=== PATIENT | female | born 1930 | race Caucasian/White ===

== ENCOUNTER 2019-01-30 19:16 | Emergency (ER) | payer MEDICARE, OTHER ==
[~2019-01-30 19:16] MED LIST: ISOVUE-370 76%-LOCM 1 ML ONE
[2019-01-30] MEDS ORDERED: Diltiazem 125 MG/25 ML ONE (19:29)
[2019-01-30 20:10] LABS: #Lymphocytes 0.8 thou/uL (1.20-3.40); #Monocytes 0.6 thou/uL (0.11-0.59); #Neutrophils 5.7 thou/uL (1.40-6.50); %Basophils 0.1 % (0.0-1.0); %Eosinophils 0.6 % (0.0-10.0); %Lymphocytes 10.9 % (21.0-51.0); %Monocytes 8.2 % (0.0-10.0); %Neutrophils 80.1 % (42.0-75.0); Hemoglobin 11.6 g/dL (12.0-16.0); Mean Corpuscular HGB CONC 33.2 g/dL (32.0-36.0); Mean Corpuscular Hemoglobin 30.3 pg (27.0-31.0); Mean Platelet Volume 7.7 fL (7.4-10.4); Platelet Count 158 thou/uL (130-400); RBC Distribution Width 14.2 % (11.5-14.5); Red Blood Cell (RBC) Count 3.83 mill/uL (4.20-5.40); White Blood Cell (WBC) Count 7.1 thou/uL (4.8-10.8)
--- NOTE | 2019-01-30 20:23 | RAD ---
XR Chest 1 View Portable HISTORY: Difficulty breathing COMPARISON: None. FINDINGS: Heart size appears slightly enlarged with atherosclerotic changes of the aorta. Chronic altagracia earing lung changes are seen without focal infiltrate. Old left rib fractures are noted. The bones are demineralized. Arthritic changes of the right shoulder. IMPRESSION: No active intrathoracic disease.
[2019-01-30 20:33] LABS: ALT (SGPT) 21 U/L (8-55); AST (SGOT) 20 U/L (5-34); Albumin 3.4 g/dL (3.4-4.8); Alkaline Phosphatase 67 U/L (40-110); Anion Gap 16 mmol/L (10-20); BUN (Urea Nitrogen) 15 mg/dL (9.8-20.1); Bilirubin, Total 0.8 mg/dL (0.2-1.2); Calc. Creatinine Clearance 0 mL/min (70-130); Calcium 8.8 mg/dL (7.8-10.44); Carbon Dioxide 22 mmol/L (23-31); Chloride 92 mmol/L (98-107); Estimated GFR-MDRD 42; Glucose 125 mg/dL (83-110); Potassium 4.1 mmol/L (3.5-5.1); Protein, Total 6.4 g/dL (6.0-8.3); Sodium 126 mmol/L (136-145)
[2019-01-30 20:53] LABS: CKMB 1.9 ng/mL (0-6.6)
[2019-01-30] MEDS ORDERED: Furosemide 20 MG/2 ML VIAL ONE (21:11)
--- NOTE | 2019-01-30 22:50 | CT ---
CTA Angio Chest W WO Con HISTORY: Cough and shortness of breath. COMPARISON: Chest x-ray done today. FINDINGS: There are mild bilateral pleural effusions. There are atelectatic changes in the lung bases with some parenchymal changes second indicate some developing infiltrate within the posterior segment of the right upper lobe. The thoracic aorta is normal in caliber. There is good pulmonary artery opacification there is extens greyson bilateral pulmonary emboli involving both upper and lower lobes with large segmental sized emboli present. There is some reflux into the inferior vena cava. The ventricular septum is not bowed . The pulmonary artery does not appear significantly dilated. Visualized liver parenchyma shows no focal findings. The gallbladder has been removed. IMPRESSION: Extensive bilateral pulmonary emboli. Findings telephoned to Dr. Wheat.
[2019-01-30 23:23] LABS: Bilirubin Negative (Negative); Blood, Urine Negative (Negative); Clarity Clear (Clear); Glucose, Urine (Dipstick) Normal (Negative); Leukocyte 500 Leu/uL (Negative); Nitrite Negative (Negative); Protein, Urine (Dipstick) Negative (Neg-Trace); RBC/HPF 0-3 HPF (0-3); Squamous Epithelial 0-3 HPF (0-3); Urobilinogen Normal mg/dL (Less than 2); WBC/HPF 0-3 HPF (0-3)
[2019-01-30 23:35] LABS: Bacteria/HPF Rare-Few HPF (None Seen)
[2019-01-30] MEDS ORDERED: Enoxaparin Sodium 80 MG/0.8 ML SYRINGE ONE (23:37)
== END 2019-01-31 00:16 | disposition short-term general hospital (02) ==
LOC: ERS 19:16
DX: I26.99 Other pulmonary embolism without acute cor pulmonale (principal); I13.0 Hypertensive heart and chronic kidney disease with heart failure and stage 1 through stage 4 chronic kidney disease, or unspecified chronic kidney disease; I50.9 Heart failure, unspecified; I48.91 Unspecified atrial fibrillation; E87.1 Hypo-osmolality and hyponatremia; N18.3 Chronic kidney disease, stage 3 (moderate); E78.5 Hyperlipidemia, unspecified; K21.9 Gastro-esophageal reflux disease without esophagitis; Z79.899 Other long term (current) drug therapy
CPT/HCPCS: 36415; 71045; 71275; 80053; 81003; 81015; 82553; 83880; 84443; 84484; 85025; 93005; 96365; 96366; 96372; 96375; J1650; J1940; J3490; Q9966